=== PATIENT | female | born 1960 | race Caucasian/White ===

== ENCOUNTER → 2024-04-07 | Outpatient (REF) | payer OTHER ==
[~2024-04-07] MED LIST: BENADRYL25 MG PO; LISINOPRIL10 MG PO; XANAX0.5 MG PO; ZANTAC150 MG PO; ZIPSOR25 MG PO
== END ==
LOC: RAD 10:56
PROVIDERS: ATTEND Hospitalist
DX: R22.41 Localized swelling, mass and lump, right lower limb (principal)
CPT/HCPCS: 93970